=== PATIENT | female | born 1945 | race Caucasian/White ===

== ENCOUNTER 2016-12-24 08:59 | Emergency (ER) | payer MEDICARE, OTHER ==
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
[2016-12-24] MEDS: MORPHINE SULFATE 5 MG/ML PFS IVP ONE ×2 (09:36→11:59)
[2016-12-24] MEDS: ONDANSETRON HCL IV 4 MG/2 ML VIAL IV ONE (09:36)
[2016-12-24 09:39] LABS: BASO % 0.4 % (0-6); EOS % 2.4 % (0-6); GRAN % 71.7 % (47-80); HEMATOCRIT 40.8 % (35.0-47.0); HEMOGLOBIN 13.6 gm/dl (11.6-16.0); LYMPH % 16.3 % (16-45); MEAN CELL VOLUME 89.3 fl (81-97); MEAN CORPUSCULAR HEMOGLOBIN 29.8 pg (27-33); MEAN CORPUSCULAR HGB CONC 33.3 g/dl (32-36); MEAN PLATELET VOLUME 9.9 fl (7.4-10.4); MONO % 9.2 % (0-9); PLATELET COUNT 405 K/uL (130-400); RED BLOOD COUNT 4.57 M/uL (3.80-5.40); RED CELL DISTRIBUTION WIDTH 16.4 % (11.5-14.5); WHITE BLOOD COUNT W/O DIFF 11.4 K/uL (4.2-12.2)
[2016-12-24 09:57] LABS: ALBUMIN 3.6 g/dL (4.0-5.0); BILIRUBIN,DIRECT 0.2 mg/dL (0-0.3); BILIRUBIN,TOTAL 0.3 mg/dL (0.2-1.0); CREATININE 1.1 mg/dL (0.5-0.9); TOTAL PROTEIN 6.3 g/dL (6.6-8.7)
[2016-12-24 10:28] LABS: URINE APPEARANCE CLEAR; URINE BILIRUBIN NEGATIVE (NEGATIVE); URINE BLOOD NEGATIVE (NEGATIVE); URINE COLOR YELLOW; URINE GLUCOSE (UA) NEGATIVE (NEGATIVE); URINE KETONE NEGATIVE (NEGATIVE); URINE LEUKOCYTE ESTERASE TRACE (NEGATIVE); URINE NITRITE POSITIVE (NEGATIVE); URINE PROTEIN NEGATIVE (NEGATIVE); URINE UROBILINOGEN 0.2 E.U./dL (0.20 - 1.00)
[2016-12-24 10:36] LABS: URINE BACTERIA 4+; URINE EPITHELIAL CELLS RARE (FEW); URINE RBC NONE SEEN (NONE SEEN); URINE WBC 21 - 35 (0-2/hpf)
[2016-12-24] MEDS: CIPROFLOXACIN HCL 500 MG TABLET PO ONE (11:06)
[2016-12-24] MEDS: CEFTRIAXONE SODIUM 1 GM in 0.9 % SODIUM CHLORIDE 100ML 100 ML IVPB ONE (11:06)
[2016-12-24 11:46] LABS: LACTIC ACID 0.7 mmol/L (0.5-2.2)
[2016-12-24 11:50] LABS: C-REACTIVE PROTEIN < 5.0 mg/L (<5.0)
--- NOTE | 2016-12-26 09:09 | CT SCAN REPORT ---
EXAM: EMERGENCY CT OF THE ABDOMEN AND PELVIS WITHOUT CONTRAST HISTORY: LEFT LOWER QUADRANT PAIN. PRIOR CHOLECYSTECTOMY AND APPENDECTOMY. TECHNIQUE: Axial CT scan of the abdomen and pelvis was performed without oral or IV contrast. Comparison: CT of the abdomen and pelvis 06/10/16. FINDINGS: The gallbladder and appendix are not identified consistent with the surgical history. The uterus and spleen are also not identified and may also both be surgically absent and correlation with the specifics of the prior surgical history is suggested. No intrarenal calculi identified on either side. No hydronephrosis or hydroureter is seen on either side as well. As such the nondilated ureters are somewhat difficult to follow in their course throughout the retroperitoneum and pelvis, but no definite ureteral calculus is seen on either side and no bladder calculus evident. On the prior study there were three small low attenuation foci noted in the liver. These are again seen today and appear essentially unchanged. Evaluation of the bowel and viscera is very limited without oral or IV contrast , but given this limitation, no definite new hepatic mass evident. Fullness of the right adrenal appears unchanged from before and is presumably a lipid rich adenoma as previously reported. No definite pancreatic or left adrenal mass identified and no renal mass evident. No free intraperitoneal air or free intraperitoneal fluid identified. Hypertrophic spurring in the spine. Postop lower lumbar posterior fusion as before. There is probably a bone graft donor site in the right iliac bone with this appearance seen previously as well. Mild anterior subluxation of L4 on L5 similar to before. IMPRESSION: 1. NO DEFINITE URINARY TRACT CALCULI OR HYDRONEPHROSIS IDENTIFIED. 2. CONSIDERABLE POSTOPERATIVE CHANGES INCLUDING CHOLECYSTECTOMY, APPENDECTOMY, HYSTERECTOMY, SPLENECTOMY, AND LOWER LUMBAR FUSION. 3. A FEW SMALL LOW ATTENUATION FOCI IN THE LIVER APPEAR ESSENTIALLY UNCHANGED. 4. 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 5. 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 JOB NUMBER: [id number] [facility]
== END 2016-12-24 12:29 | disposition home or self-care (01) ==
LOC: ER 08:59
DX: R10.32 Left lower quadrant pain (principal); M16.12 Unilateral primary osteoarthritis, left hip
CPT/HCPCS: 99284 ×2; 96376; 96374; 96375; 83605; 85025; 80076; 86140; 80048; 81001; 74176; J2405; J2270

== ENCOUNTER 2016-12-25 15:06 | Emergency (ER) | payer MEDICARE, OTHER ==
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
== END 2016-12-25 16:12 | disposition home or self-care (01) ==
LOC: ER 15:06
DX: L27.0 Generalized skin eruption due to drugs and medicaments taken internally (principal); T36.8X5A Adverse effect of other systemic antibiotics, initial encounter
CPT/HCPCS: 99282

== ENCOUNTER 2018-03-04 15:45 | Emergency (ER) | payer MEDICARE, OTHER ==
[2018-03-04] MEDS ORDERED: ASPIRIN 81 MG CHEWABLE TABLET PO ONE (16:09)
[2018-03-04 16:23] LABS: BASO % 0.2 % (0-6); EOS % 1.3 % (0-6); GRAN % 48.4 % (47-80); HEMATOCRIT 45.7 % (35.0-47.0); HEMOGLOBIN 15.2 gm/dl (11.6-16.0); LYMPH % 38.9 % (16-45); MEAN CORPUSCULAR HEMOGLOBIN 30.3 pg (27-33); MEAN CORPUSCULAR HGB CONC 33.3 g/dl (32-36); MEAN PLATELET VOLUME 9.5 fl (7.4-10.4); MONO % 11.2 % (0-9); PLATELET COUNT 513 K/uL (130-400); RED BLOOD COUNT 5.02 M/uL (3.80-5.40); RED CELL DISTRIBUTION WIDTH 15.8 % (11.5-14.5); WHITE BLOOD COUNT W/O DIFF 10.3 K/uL (4.2-12.2)
[2018-03-04] MEDS ORDERED: LEVOFLOXACIN 500MG IVPB 500 MG/100 ML BAG IVPB ONE (16:32)
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
[2018-03-04 16:36] LABS: PARTIAL THROMBOPLASTIN TIME 27.5 SECONDS (24.5-39.1)
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
[2018-03-04 17:21] LABS: BLOOD UREA NITROGEN 16 mg/dL (8-23); CREATININE 1.1 mg/dL (0.5-0.9); EST GLOMERULAR FILTRATION RATE 52 mL/min; GLUCOSE,RANDOM 83 mg/dL (74-109)
[2018-03-04] MEDS ORDERED: GUAIFENESIN/D-METH. 10 ML UDC PO ONE (17:51)
--- NOTE | 2018-03-06 07:46 | RADIOLOGY REPORT ---
EXAM: CHEST, TWO VIEWS HISTORY: COUGH AND DIFFICULTY IN BREATHING FOR TWO WEEKS. SEEN RECENTLY AT URGENT CARE AND DIAGNOSED WITH COPD AND RIB FRACTURES, ON ANTIBIOTICS AND STEROIDS, BUT GETTING WORSE. TECHNIQUE: PA and lateral views of the chest were obtained. Comparison: Portable chest 01/29/16. FINDINGS: The previously seen PIC line has been removed. The heart size is normal. The lungs do appear somewhat hyperinflated suggesting underlying COPD. No definite acute infiltrate seen and no pleural effusion or pneumothorax evident. Mild thoracic levoscoliosis. There are multiple old right rib fractures involving at least the right fourth through seventh ribs, also present previously. A somewhat wide right acromioclavicular joint was also present previously. IMPRESSION: 1. HYPERINFLATION CONSISTENT WITH COPD. NO DEFINITE ACUTE INFILTRATE SEEN. 2. MULTIPLE OLD RIGHT RIB FRACTURES AND RELATIVELY WIDE RIGHT ACROMIOCLAVICULAR JOINT, ALSO PRESENT PREVIOUSLY. JOB NUMBER: [id number] [facility]
== END 2018-03-04 18:11 | disposition home or self-care (01) ==
LOC: ER 15:45
DX: J44.1 Chronic obstructive pulmonary disease with (acute) exacerbation (principal); J20.9 Acute bronchitis, unspecified; J44.0 Chronic obstructive pulmonary disease with (acute) lower respiratory infection; R06.00 Dyspnea, unspecified; R42 Dizziness and giddiness; I10 Essential (primary) hypertension; F17.210 Nicotine dependence, cigarettes, uncomplicated
CPT/HCPCS: 71046; 80048; 84484; 85025; 85610; 85730; 93005; 93010; 96365; 99284; J1956

== ENCOUNTER 2018-09-18 21:06 | Emergency (ER) | payer MEDICARE, OTHER ==
[2018-09-18] MEDS ORDERED: ACETAMINOPHEN 325 MG TAB PO ONE (21:23)
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
--- NOTE | 2018-09-20 20:41 | RADIOLOGY REPORT ---
EXAM: SHOULDER, RIGHT HISTORY: HISTORY OF PAIN. TECHNIQUE: Three views of the right shoulder are obtained. FINDINGS: There is chronic-appearing separation of the acromioclavicular joint. There are severe degenerative changes of the glenohumeral joint. No acute fractures are seen. There is cephalad migration of the humeral head suggesting rotator cuff injury. IMPRESSION: AC JOINT SEPARATION. DJD GLENOHUMERAL JOINT. POSSIBLE ROTATOR CUFF INJURY. JOB NUMBER: [id number] [facility]
== END 2018-09-18 22:41 | disposition home or self-care (01) ==
LOC: ER 21:06
DX: S46.001A Unspecified injury of muscle(s) and tendon(s) of the rotator cuff of right shoulder, initial encounter (principal); M67.911 Unspecified disorder of synovium and tendon, right shoulder; W01.0XXA Fall on same level from slipping, tripping and stumbling without subsequent striking against object, initial encounter; Y93.H2 Activity, gardening and landscaping; J44.9 Chronic obstructive pulmonary disease, unspecified; F17.210 Nicotine dependence, cigarettes, uncomplicated
CPT/HCPCS: 99283